=== PATIENT | female | born 1995 | race Caucasian/White ===

== ENCOUNTER 2020-08-23 10:52 | Day surgery (SDC) | payer BC ==
[~2020-08-23] VITALS: Ht 160 cm; Wt 51.8 kg
--- NOTE | ~2020-08-23 | OP ---
PATIENT NAME: TOVA GONZALEZ MEDICAL RECORD: [id number] :97 LOCATION:D.OPS ADMISSION DATE: SURGEON: SOPHIE ZAVALA MD DATE OF OPERATION: 08/23/2020 DATE OF SERVICE: 08/23/2020 PROCEDURE: Colonoscopy. PREOPERATIVE DIAGNOSIS: Rectal bleeding. MEDICATION: Propofol per anesthesia. DESCRIPTION OF PROCEDURE: Colonoscopy was performed. The colonoscope was inserted through the rectum and advanced to the cecum, identified by the ileocecal valve and appendiceal orifice. The quality of the prep was good. There were small nonbleeding internal hemorrhoids viewed on retroflexion. The remainder of the exam was normal. The patient tolerated the procedure well. FINAL DIAGNOSIS: Small internal hemorrhoids. Remainder of exam normal. PLAN: Advance diet. Recommend fiber supplements, stool softeners as needed. Return to GI office. TRANSINT:[id number] Voice Confirmation ID: [id number] DOCUMENT ID: [id number] SOPHIE ZAVALA MD CC: [id number] DICTATION DATE: 08/23/20 1341 [employer]IV[employer]ER[employer] SPECIALIST: 08/23/20 1707 [facility] [place] 08/23/20 [facility] [address] [place] [address]
[~2020-08-23 10:52] MED LIST: MIDODRINE HCL10 MG PO; SPRINTEC 28 DA1 EAC1 PO
[2020-08-23 11:11] LABS: BASOPHILS 0.3 % (0-2); EOSINOPHILS 0.6 % (0-7); HEMATOCRIT 36.6 % (36.0-48.0); LYMPHOCYTE ABS# 1.12 10x3/uL (1.18-3.74); LYMPHOCYTES 31.3 % (15-50); MCHC 32.8 g/dL (31.0-37.0); MCV 82.2 fL (80.0-100.0); MEAN PLATELET VOLUME 9.7 fL (7.4-10.4); MONOCYTES 8.1 % (2-11); NEUTROPHIL ABS# 2.14 10x3/uL (1.56-6.13); NEUTROPHILS 59.7 % (40-80); PLATELET COUNT 250 10x3/uL (130-400); RBC 4.45 10x6/uL (4.00-5.40); RDW 13.2 % (11.5-14.5); WBC 3.6 10x3/uL (4.8-10.8)
[2020-08-23 11:28] LABS: CALC OSMOLALITY 275 mosm/kg (275-300); CALCIUM 9.4 mg/dL (8.5-10.1); CARBON DIOXIDE 22.2 mmol/L (21.0-32.0); CHLORIDE - SERUM 104 mmol/L (98-107); CREATININE - SERUM 0.7 mg/dL (0.6-1.3); GLUCOSE 84 mg/dL (74-106); HCG SERUM NEGATIVE (NEGATIVE); POTASSIUM - SERUM 4.1 mmol/L (3.5-5.1); SODIUM 139 mmol/L (136-145); UREA NITROGEN 9 mg/dL (7-18); eGFR NON AFRICAN AMERICAN > 90 mL/min (90-120)
[2020-08-23] MEDS ORDERED: CYMBALTA20 MG PO (12:40)
[2020-08-23 12:50] VITALS: BP 117/62; Ht 160 cm; Wt 51.8 kg
--- NOTE | 2020-08-23 16:21 | NUR ---
IV D/C'D WITH CANNULA INTACT, PRESSURE HELD AND DRSG PLACED. DISCHARGE INSTRUCTIONG GIVEN AND PT VERBALIZED AN UNDERSTANDING. AFTER DR. ZAVALA SPOKE WITH PT AT BEDSIDE SHE WAS DISCHARGED IN STABLE CONDITION
== END 2020-08-23 15:05 | disposition home or self-care (01) ==
LOC: D.OPS 10:52
PROVIDERS: Anesthesiology; ATTEND Internal Medicine Gastroenterology
DX: K62.5 Hemorrhage of anus and rectum (principal); K64.8 Other hemorrhoids; R10.9 Unspecified abdominal pain